=== PATIENT | female | born 1995 | race African-American/Black ===

== ENCOUNTER 2019-06-19 03:45 | Emergency (ER) | payer SELFPAY ==
[~2019-06-19] VITALS: Ht 152.4 cm; Wt 59.1 kg
[2019-06-19 03:48] VITALS: TEMP 97.8
[2019-06-19 04:15] LABS: BASO % 0.5 % (0.0-2.0); EOS # 0.1 (0.0-0.7); EOS % 1.4 % (0-4.0); GRAN % 65.3 % (42.2-75.2); HEMATOCRIT 43.5 % (37.0-47.0); LYMPH # 2.1 (1.2-3.4); LYMPH % 27.8 % (20.0-51.0); MEAN CELL VOLUME 83 fl (80.0-100.0); MEAN CORPUSCULAR HEMOGLOBIN 27 pg (27.0-31.0); MEAN CORPUSCULAR HGB CONC 32 g/dl (33.0-37.0); MEAN PLATELET VOLUME 9.6 fl (7.4-10.4); MONO # 0.4 (0.1-0.6); MONO % 4.7 % (1.7-9.3); PLATELET COUNT 249 K/mm3 (130-400); RED BLOOD COUNT 5.24 M/mm3 (4.10-5.30); REDCELL DISTRIBUTION WIDTH-CV 16.7 % (11.5-14.5)
[2019-06-19 04:30] LABS: ACETAMINOPHEN < 10 ug/mL (10-30); ALANINE AMINOTRANSFERASE 10 U/L (9-52); ALCOHOL(ethanol),MEDICAL 228 mg/dL; ALKALINE PHOSPHATASE 63 U/L (50-136); ANION GAP 14 mmol/L (7-16); AST,SGOT 25 U/L (15-37); BILIRUBIN,TOTAL 0.2 mg/dL (0.0-1.0); BLOOD UREA NITROGEN 10 mg/dL (7-17); CALCIUM 9.6 mg/dL (8.4-10.2); CARBON DIOXIDE 19 mmol/L (22-30); CHLORIDE 111 mmol/L (98-107); GLUCOSE 105 mg/dL (74-106); POTASSIUM 3.9 mmol/L (3.4-5.0); SALICYLATE < 1.0 mg/dL; SODIUM 144 mmol/L (137-145); TOTAL PROTEIN 8.8 gm/dL (6.4-8.2)
[2019-06-19 07:46] LABS: COLLECTION METHOD CLEAN CATCH
[2019-06-19 07:55] LABS: MUCOUS Present /lpf; PH 6 (5-8); SQUAMOUS EPITHELIAL None Seen /hpf; URINE APPEARANCE Clear; URINE BACTERIA Rare /hpf; URINE BILIRUBIN Negative (NEGATIVE); URINE BLOOD Negative (NEGATIVE); URINE COLOR Yellow; URINE GLUCOSE Negative (NEGATIVE); URINE KETONE Negative (NEGATIVE); URINE LEUKOCYTE ESTERASE Negative (NEGATIVE); URINE NITRATE Negative (NEGATIVE); URINE PROTEIN(semi-quant) Negative (NEGATIVE); URINE RBC 0-2 /hpf; URINE UROBILINOGEN Negative (NEGATIVE)
[2019-06-19 08:00] LABS: TRICYCLIC ANTIDEPRESS URINE NEGATIVE
[2019-06-19 09:29] VITALS: BP 111/77; PULSE 98
[2019-06-19] MEDS ORDERED: PERCOCET 325 MG1 TA2 PO (13:12)
== END 2019-06-19 10:13 | disposition home or self-care (01) ==
LOC: COL.ER 03:45 → EDBD 03:47 → COL.ER 10:13
PROVIDERS: Emergency Medicine
DX: S09.93XA Unspecified injury of face, initial encounter (principal); Y04.8XXA Assault by other bodily force, initial encounter; Y92.410 Unspecified street and highway as the place of occurrence of the external cause
CPT/HCPCS: J2060

== ENCOUNTER 2019-06-19 10:45 | Outpatient (CLI) | payer SELFPAY ==
[2019-06-19] MEDS ORDERED: PERCOCET 325 MG1 TA2 PO (13:12)
--- NOTE | 2019-06-19 14:45 | NUR ---
Metronidazole 2 grams PO single dose called to [facility] in [place], [place] off of [facility] per patient request. Azithromycin 1gm PO single dose called to [facility] in [place] as well. Spoke with Dr. Blackwell from the ED and informed him that pt continue to report nausea and has been dry-heaving throughout examination.
== END 2019-06-19 15:12 | disposition home or self-care (01) ==
LOC: LDRO 10:45
DX: Z04.41 Encounter for examination and observation following alleged adult rape (principal)
CPT/HCPCS: J0696